=== PATIENT | male | born 1925 | race Caucasian/White ===

== ENCOUNTER → 2016-07-11 08:33 | Outpatient (CLI) | payer MEDICARE, OTHER ==
[2015-07-17 13:39] VITALS: BMI 19.2
[~2016-07-11 08:33] MED LIST: ALEVE220 MG PO; ANTIVERT25 MG PO; ASPIRIN325 MG PO; BAYER CHEWABLE81 MG PO; BIOFREEZE118 ML TP; CALCIUM 600+D T1 TA1 PO; CELEXA20 MG PO; ELIQUIS5 MG PO; FISH OIL 1,0001 CA1 PO; FISH OIL 1,2001 CAP PO; FLAGYL500 MG PO; GARLIC1 CAP PO; HYDROCODON-ACE1 EAC7 PO; LAMISIL250 MG PO; LEVAQUIN500 MG PO; LIPITOR10 MG PO; LOPRESSOR25 MG PO; LOW DOSE ASPIRI81 M1 PO; MEGACE400 MG/10 PO; MULTIPLE VITAMI1 TA1 PO; NYSTATIN ORAL SU5 ML PO; PREDNISONE5 MG PO; PRINIVIL20 MG PO; REMERON15 MG PO; SAW PALMETTO450 MG PO; SYNTHROID50 MCG PO; VITAMIN D31000 UNIT PO; XARELTO15 MG PO; ZOFRAN4 MG PO
--- NOTE | 2016-07-19 14:37 | EC ---
PATIENT:ADELITA COX DATE OF SERVICE: 07/11/16 SEX: M MEDICAL RECORD: [id number] DATE OF : [birth year] LOCATION:[facility] AGE OF PATIENT: 89 ADMISSION DATE: 07/11/16 REFERRING PHYSICIAN: INTERPRETING PHYSICIAN: FELIX CHAPA MD ECHOCARDIOGRAM REPORT ECHO CHARGES 4 ECHO COMPLETE CLINICAL DIAGNOSIS: CARDIOMYOPATHY HX CVA ECHOCARDIOGRAPHIC MEASUREMENTS (adult normal given) AC root (d.<3.7cm) 4.0 LV Septum d (<1.2 cm> 1.3 Valve Excursion 2.0 LV Septum (systole) 1.4 Left Atria (s.<4.0cm> 3.0 LVPW d(<1.2cm) 1.2 RV (d.<2.3cm) 3.2 LVPW (sytole) 1.5 LV diastole(<5.6CM) 5.5 MV E-F(>70mm/sec) LV systole 4.4 LVOT Diameter 2.1 MV exc.(>10mm) 0.6 Est.ejection fraction (50-75%) Pericardial Effusion N DOPPLER: LVIT A 92.0 E 77.0 LA RVSP 15 LVOT 75 AOP1/2T Asc. Ao 107 RVOT 64 RA PA 84 AV Gradient Peak 4.56 AV Mean 2.60 AV Area 3.0 MV Gradient Peak 3.55 MV Mean 1.52 MV Area COMMENTS: Director Of Learning: Serina ARRINGTON Supervisor Contact Lens:Zarina Chapa TAPE# PACS DATE OF SERVICE: 07/11/2016 Echocardiogram FINDINGS: 1. Left ventricular chamber size is within normal limits. Left ventricular systolic function is normal. Overall ejection fraction estimated at 50%. 2. Left atrium is within normal limits. Right atrium and right ventricular chamber sizes are afkr-ad-dssivtrypx dilated. 3. Valvular structures have normal structure and motion. ECHOCARDIOGRAM REPORT [id number] ADELITA COX 4. Doppler interrogation reveals mild to moderate aortic insufficiency, mild mitral regurgitation, mild tricuspid regurgitation, no other valvular insufficiency or stenosis and pulmonary systolic pressure is normal estimated at 15 mmHg. 5. No evidence of pericardial effusion or left ventricular thrombus. TRANSINT:[id number] Voice Confirmation ID: [id number] DOCUMENT ID: [id number] FELIX CHAPA MD at 1437 CC: [id number] DICTATION DATE: 07/11/16 1159 WINE PASTEURIZER: 07/12/16 0129 DEP CLI 07/11/16 [facility] [address] [place] [address]
== END | disposition home or self-care (01) ==
LOC: D.ECHO 08:33
DX: I42.9 Cardiomyopathy, unspecified (principal)

== ENCOUNTER → 2016-10-19 10:18 | Day surgery (SDC) | payer MEDICARE, OTHER ==
[~2016-10-19] VITALS: Ht 177.8 cm; Wt 72.7 kg
[~2016-10-19 10:18] MED LIST changes: +CALTRATE 600 M600 M1 PO; +COUMADIN2.5 MG PO; +FUROSEMIDE20 MG PO; +NORVASC2.5 MG PO; +OMEPRAZOLE20 M1 PO; +[UNRECOGNIZED DRUG - OTHER] PO
[2016-10-19 10:54] LABS: BASOPHILS 0.5 % (0-2); EOSINOPHILS 8.6 % (0-7); HEMATOCRIT 40.7 % (42.0-54.0); HEMOGLOBIN 13.2 g/dL (13.5-17.5); IMMATURE GRANULOCYTES 0.3 % (0-5); LYMPHOCYTES 29.7 % (15-50); MCH 31.4 pg (26.0-34.0); MCHC 32.4 g/dL (31.0-37.0); MCV 96.7 fL (80.0-100.0); MONOCYTES 10.5 % (2-11); NEUTROPHILS 50.4 % (40-80); RBC 4.21 10x6/uL (4.20-6.10); RDW 14.4 % (11.5-14.5); WBC 8.7 10x3/uL (4.8-10.8)
[2016-10-19 10:58] VITALS: Ht 177.8 cm; Wt 72.7 kg
[2016-10-19 11:10] LABS: PLATELET COUNT 95 10x3/uL (130-400)
[2016-10-19 11:11] LABS: INR 1.32 (0.85-1.17); PROTIME 16.2 SECONDS (11.6-15.0)
--- NOTE | 2016-10-19 11:31 | NUR ---
REPORTED EKG AND WHEEZING TO DR. ROSARIO AND HAS HTN STENTS STROKE AND SINUS TITI AND HT FAILURE. STATED WANTED CARDIOLOGY TO SEE PATIENT BEFORE DOING EGD.
[2016-10-19 11:54] LABS: PLATELET ESTIMATE DECREASED
--- NOTE | 2016-10-19 13:05 | NUR ---
2640 DR. DENNIS SAW PATIENT AND CARDIAC CLEARANCE GIVEN.
--- NOTE | 2016-10-19 14:55 | NUR ---
1425-PT ESCORTED OUT BY VOLUNTEER.
== END | disposition home or self-care (01) ==
LOC: D.OPS 10:18
PROVIDERS: Anesthesiology
DX: K44.9 Diaphragmatic hernia without obstruction or gangrene (principal); K31.7 Polyp of stomach and duodenum; K29.50 Unspecified chronic gastritis without bleeding; Z01.812 Encounter for preprocedural laboratory examination

== ENCOUNTER → 2016-10-24 09:16 | Outpatient (CLI) | payer MEDICARE, OTHER ==
[2016-10-19 10:58] VITALS: BMI 23.0
== END | disposition home or self-care (01) ==
LOC: D.RAD 09:16
DX: K21.9 Gastro-esophageal reflux disease without esophagitis (principal); R05 Cough

== ENCOUNTER 2017-02-22 16:11 | Emergency (ER) | payer MEDICARE, OTHER ==
[2016-10-19 10:58] VITALS: BMI 23.0
[2017-02-22 17:15] LABS: BASOPHILS 0.3 % (0-2); EOSINOPHILS 4.2 % (0-7); HEMATOCRIT 40.6 % (42.0-54.0); HEMOGLOBIN 13.1 g/dL (13.5-17.5); IMMATURE GRANULOCYTES 0.3 % (0-5); LYMPHOCYTES 13.9 % (15-50); MCH 31.7 pg (26.0-34.0); MCHC 32.3 g/dL (31.0-37.0); MCV 98.3 fL (80.0-100.0); MONOCYTES 6.1 % (2-11); NEUTROPHILS 75.2 % (40-80); RBC 4.13 10x6/uL (4.20-6.10); RDW 13.6 % (11.5-14.5); WBC 12.6 10x3/uL (4.8-10.8)
[2017-02-22 17:35] LABS: ALBUMIN 2.9 g/dL (3.4-5.0); BILIRUBIN - TOTAL 0.5 mg/dL (0.2-1.3); CALCIUM 8.8 mg/dL (8.5-10.1); CARBON DIOXIDE 28.8 mmol/L (21.0-32.0); CREATININE - SERUM 1.9 mg/dL (0.6-1.3); POTASSIUM - SERUM 3.8 mmol/L (3.5-5.1); PROTEIN - SERUM 7.4 g/dL (6.4-8.2)
[2017-02-22 17:36] LABS: PLATELET COUNT 60 10x3/uL (130-400)
[2017-02-22 17:37] LABS: APPEARANCE CLEAR (CLEAR); BILIRUBIN NEGATIVE (NEGATIVE); COLOR DK YELLOW (YELLOW); GLUCOSE NEGATIVE (NEGATIVE); KETONE NEGATIVE (NEGATIVE); NITRITE NEGATIVE (NEGATIVE); PROTEIN TRACE mg/dL (NEGATIVE); SPECIFIC GRAVITY 1.025 (1.005-1.020); UROBILINOGEN NORMAL (NORMAL)
[2017-02-22 18:01] LABS: PLATELET ESTIMATE DECREASED
== END 2017-02-22 18:37 | disposition home or self-care (01) ==
LOC: D.ER 16:11
PROVIDERS: Emergency Medicine; Nurse Practitioner Family
DX: J06.9 Acute upper respiratory infection, unspecified (principal); J01.90 Acute sinusitis, unspecified; I10 Essential (primary) hypertension; Z86.73 Personal history of transient ischemic attack (TIA), and cerebral infarction without residual deficits